=== PATIENT | female | born 1960 | race Caucasian/White ===

== ENCOUNTER 2020-12-05 22:02 | Emergency (ER) | payer SELFPAY ==
[~2020-12-05] VITALS: Ht 157.5 cm; Wt 49.9 kg
[2020-12-05 22:06] VITALS: BP 124/69
--- NOTE | 2020-12-05 22:08 | NUR ---
NENA ALS TO ER BED 8
--- NOTE | 2020-12-05 22:10 | NUR ---
patient biba from home, daughter c/o altered. per EMS, daughter reported that patient vomited blood and took unknown amounts of "something"; also reports that patient was hallucinating and talking to self, and not eating or drinking anything. Patient reports feeling fine and doesnt know why she is here. patient ate something this morning but did not eat anything for diner. patient reports that daughter and her have great relationship. AAOx4. VSS. pmh denies nka
--- NOTE | 2020-12-05 22:16 | NUR ---
patient ambulated to the bathroom for urine collection
--- NOTE | 2020-12-05 23:07 | NUR ---
according to warehouse laborer, patient refused to get blood drawn
--- NOTE | 2020-12-05 23:10 | NUR ---
Patient does not wish to proceed with medical care recommended by Guero BACON. Patient given information related to possible complications, up to and including , which could occur as a result of leaving hospital at this time. Patient verbalizes understanding of risks involved leaving against medical advice. Patient has signed AMA form.
--- NOTE | 2020-12-05 23:19 | NUR ---
Called taxi services to picker patient, wait time an hour
[2020-12-06] MEDS ORDERED: ZIPRASIDONE MESYLATE 20 MG/ML VIAL IM ONE (17:38)
== END 2020-12-05 23:10 | disposition left against medical advice (07) ==
LOC: MED 22:02
DX: K13.79 Other lesions of oral mucosa (principal); R41.82 Altered mental status, unspecified
CPT/HCPCS: 81002; 93005; 99283; J3486